=== PATIENT | female | born 1970 | race Hispanic/Latino ===

== ENCOUNTER 2016-08-03 00:38 | Emergency (ER) | payer OTHER, MEDICARE ==
[~2016-08-03 00:38] MED LIST: ABILIFY 10 MG10 MG PO; ABILIFY 2MG2 MG PO; ABILIFY 5MG5 MG PO; ALBUTEROL 3 ML3 ML INH; ALBUTEROL0.09 MG/A1 INH; ALBUTEROL0.09 MG/A2; ALBUTEROL2.5 MG/3 M INH/SOL; APTIOM PO; APTIOM400 MG PO; ARIPIPRAZOLE2 MG PO; ATENOLOL25 MG PO; ATIVAN0.5 MG PO; ATIVAN1 M1 PO; ATIVAN1 MG PO; AUGMENTIN 875 M1 TAB PO; BACTRIM DS 8001 TAB PO; BENTYL20 MG PO; CIPRO 500MG (E500 MG PO; CLOTRIMAZOLE-BE15 GM TOP; DIASTAT ACUDIAL20 MG PR; DIASTAT ACUDIAL20 MG RC; DIAZEPAM5 M1 PO; DILAUDID2 M1 PO; ENDOCET 325 MG-1 TA1 PO; ESCITALOPRAM OX10 MG PO; FLOMAX(MONOGRA0.4 MG PO; HYDROMORPHONE HC2 M1; HYDROXYZINE HCL25 M2 PO; HYDROXYZINE HCL25 MG PO; HYDROXYZINE HYD25 M1 PO; IBU800 MG PO; IBUPROFEN600 M1 PO; IBUPROFEN600 MG PO; IBUPROFEN800 MG PO; IMODIUM2 MG PO; LAMICTAL 100MG100 MG PO; LAMICTAL200 MG PO; LAMOTRIGINE100 MG PO; LAMOTRIGINE200 MG PO; LORAZEPAM1 MG PO; MEDROL DOSEPAK1 PAC PO; MIRALAX17 GM PO; MOBIC15 M1 PO; MOBIC7.5 MG PO; MONTELUKAST SOD10 MG; MOTRIN 600 MG600 MG PO; MULTI-DAY VITA1 EACH PO; NITROFURANTOIN100 M4 PO; NORCO 325 MG-51 TAB PO; ONFI10 M1 PO; PEPCID20 M1 PO; PERCOCET 325 MG1 TA2 PO; PERCOCET 5-3251 EACH PO; PREDNISONE10 MG PO; PROAIR HFA0.09 MG/Ac INH; SERTRALINE HYD100 MG PO; SINGULAIR10 MG PO; SPIRIVA 18 MCG18 MCG INH; SYMBICORT 160/41 PUF INH; SYMBICORT 16010.2 GM INH; SYMBICORT1 AER INH; TAMSULOSIN HYD0.4 MG PO; TESSALON PERLE100 MG PO; TOPAMAX100 MG PO; TOPAMAX25 MG PO; TOPAMAX50 MG PO; TOPIRAMATE25 MG PO; TORADOL10 MG PO; TRAZODONE HCL100 M1 PO; TRAZODONE100 MG PO; TYLENOL WITH C1 EACH PO; VIMPAT150 M1 PO; VITAMIN D50000 I1 PO; VOLTAREN50 MG PO; ZOFRAN 4 MG TABL4 MG PO; ZOFRAN ODT4 M1 SL; ZOFRAN ODT4 MG PO; ZOFRAN4 M1 PO; ZOFRAN4 M1 SL; ZOFRAN4 M2 PO; ZOLOFT100 MG PO; [UNRECOGNIZED DRUG - OTHER] PO
--- NOTE | 2016-08-03 01:29 | ED AMS/SEIZURE/WEAK/DIZZY ---
History of Present Illness General Chief Complaint: Seizure Stated Complaint: BIBA SEIZURES Source: family, old records, EMS Exam Limitations: unable to give history, POSTICTAL Vital Signs & Intake/Output Vital Signs & Intake/Output Vital Signs Date Time Temp Pulse Resp B/P Pulse O2 O2 Flow FiO2 Ox Delivery Rate 08/03 0329 63 18 143/75 97 08/03 0055 96 Room Air 08/03 0040 98.3 78 18 158/80 97 Room Air Allergies Coded Allergies: carbamazepine (UNKNOWN 02/11/16) divalproex sodium (From Depakote) (PT DOESN'T REMEMBER 02/11/16) levetiracetam (From Keppra) (RASH 02/11/16) phenobarbital (UNKNOWN 02/11/16) phenytoin (RASH 02/11/16) oxcarbazepine (From Trileptal) (Severe, SPOTS ON LUNGS 02/11/16) rufinamide (Mild, "DIDN'T WORK" 02/11/16) Uncoded Allergies: benzel (suicidal thoughts 01/24/16) Reconcile Medications Albuterol Sulfate (Albuterol Sulfate Hfa) 0.09 MG/Actuation KATHERYN 2 PUFF INH PRN SHORTNESS OF BREATH (Reported) 90 MCG PER PUFF Albuterol Sulfate 2.5 MG/3 ML VIAL.NEB 1 Vial INH/JAKY Q6H PRN COPD (Reported) Atenolol 25 MG TAB 1 TAB PO DAILY HEART (Reported) Budesonide/Formoterol Fumara (Symbicort 160-4.5 Mcg Inhaler) 160 MCG/4.5 MCG PUF 2 PUF INH BID BREATHING PROBLEMS (Reported) Clobazam (ONFI) 10 MG TABLET 1 TAB PO DAILY SEIZURES (Reported) Clotrimazole/Betamethasone Dip (Clotrimazole-Betamethasone Crm) 15 GM CREAM..G. 1 SMITA TOP BID PSORIASIS (Reported) apply to affected area(s) Diazepam 5 MG TABLET 1 TAB PO DAILY SEIZURES (Reported) Escitalopram Oxalate 10 MG TABLET 1 TAB PO DAILY DEPRESSION (Reported) Famotidine (Pepcid) 20 MG TABLET 1 TAB PO BID gastritis Hydroxyzine HCl 25 MG TABLET 1 TAB PO TID PRN ITCHING (Reported) Ibuprofen 800 MG TAB 1 TAB PO TID PRN PAIN Lacosamide (Vimpat) 150 MG TABLET 1 TAB PO DAILY SEIZURES (Reported) Lamotrigine (Lamictal) 200 MG TAB 4 TAB PO QAM SEIZURES (Reported) Meloxicam (Mobic) 15 MG TABLET 1 TAB PO DAILY PAIN Ondansetron (Zofran Odt) 4 MG TAB.RAPDIS 1 ODT SL TID PRN nausea TRAZODONE HCL (Trazodone HCl) 100 MG TAB 2 TAB PO QPM SLEEP (Reported) Tylenol With Codeine (Tylenol With Codeine #3 Tablet) 1 EACH TABLET 1 TAB PO Q4-6 PRN PRN PAIN Triage Note: TRIAGE: BIBA FROM HOME FAMILY REPORTED TO EMS 2-3 SEIZURES EACH LASTING APPROX 15 SECONDS OCCURED WITHIN 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 PATIENT HX SEIZURES, REPORTS TAKES VALIUM DAILY AND DID NOT TAKE TODAY. PATIENT ARRIVES LETHARGIC, SPEAKING ONLY FEW WORDS. NO SEIZURE ACTIVITY NOTED. PATIENT REPORTS "FEELS LIKE I'M GOING TO HAVE ANOTHER ONE." PATIENT PLACED ON DAIRY INSPECTOR, SEIZURE PADS AND SEIZURE/FAL PRECAUTIONS REMAIN IN PLACE. Triage Nurses Notes Reviewed? yes HPI: Patient presents for evaluation after having 2 grand mal seizures tonight. Patient has a known history of seizures with multiple antiseizure medication allergies and adverse reactions. She recently had an increase in her dose of ONFI. She is currently being treated for an ear infection. Since he increased dose of her antiseizure medication she has felt "a little spacey". She has been compliant with her medications. Her last seizure was August 04 while on vacation. She typically gets one to 2 seizures per week. Past History Travel History Traveled to [place] past 21 day No Medical History Any Pertinent Medical History? 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 FATHER ( of AIDS.). child (seizure disorder). Relation not specified for: No pertinent family history Hx Contributory? No Review of Systems Review of Systems Constitutional: Reports: see HPI. Neurological/Psychological: Reports: no symptoms, tonic-clonic seizures. Comments Patient is unable to provide review of systems. Physical Exam Physical Exam General Appearance: SEE BELOW Comments: Gen.: Well-nourished, well-developed, no acute respiratory distress. Distant gaze, not meaningfully communicative Head: Normocephalic, atraumatic. Eyes: Normal inspection bilaterally, PERRLA Ears: Normal inspection bilaterally Nose: Normal inspection Throat/mouth : Moist mucosa Neck: Supple, full range of motion, no goiter Heart: Regular rate and rhythm, no murmurs rubs or gallops Lungs: Clear to auscultation bilaterally with normal air entry Chest: Nontender Back: Normal range of motion Abdomen: Soft, nontender, nondistended, normal bowel sounds Extremities: Normal range of motion grossly, equal radial pulses, no cyanosis clubbing or edema, normal deep tendon reflexes, no tremors Neurologic: Cranial nerves grossly intact, speech is clear Skin: warm and dry Psychiatric: Calm, cooperative, no apparent delusions or hallucinations Core Measures ACS in differential dx? No CVA/TIA Diagnosis: No Severe Sepsis Present: No Septic Shock Present: No Progress Differential Diagnosis: seizure disorder Plan of Care: Continue current medications, follow up with neurologist Initial ED EKG: none Comments: Pt has hx of frequent seizures. multiple ED evaluations. At this point there seems to be no reason to repeat yet another workup here in the emergency department. Other than the seizures is been no changes in the patient's overall history aside from her treatment for an ear infection. They agree that an emergency department workup is not necessary at this time. 08/03/2016 4:40:29 AM patient appears comfortable after medications and has had no further seizure activity here in the emergency department. I feel she is stable for discharge. Departure Departure Disposition: HOME OR SELF CARE Condition: Stable Clinical Impression Primary Impression: Breakthrough seizure Referrals: ACOSTA HERNDON (PCP/Family) Additional Instructions: Continue your current medications. Follow-up with your neurologist this week. Notify your primary care doctor of this emergency department visit and treatment plan. Return if any concerns or sudden worsening. Thank you for choosing the [facility] Emergency Department for your care. It was a pleasure to serve you today. Ross Mccracken M.D. [facility] Departure Forms: Customer Survey General Discharge Information
[2016-08-03 04:50] VITALS: BP 116/56
== END 2016-08-03 05:27 ==
LOC: ERH 00:38
DX: R56.9 Unspecified convulsions (principal)
CPT/HCPCS: 96374; 96375; J0131

== ENCOUNTER 2016-08-17 08:33 | Emergency (ER) | payer OTHER, MEDICARE ==
[~2016-08-17] VITALS: Ht 167.6 cm; Wt 83.9 kg
--- NOTE | 2016-08-17 08:49 | ED AMS/SEIZURE/WEAK/DIZZY ---
History of Present Illness General Chief Complaint: General Adult Stated Complaint: ? ON COMING SEIZURE ACTIVITY Source: patient, family, old records Exam Limitations: clinical condition Vital Signs & Intake/Output Vital Signs & Intake/Output Vital Signs Date Time Temp Pulse Resp B/P Pulse O2 O2 Flow FiO2 Ox Delivery Rate 08/17 0841 97.2 59 18 161/81 94 Room Air Allergies Coded Allergies: carbamazepine (UNKNOWN 02/11/16) divalproex sodium (From Depakote) (PT DOESN'T REMEMBER 02/11/16) levetiracetam (From Keppra) (RASH 02/11/16) phenobarbital (UNKNOWN 02/11/16) phenytoin (RASH 02/11/16) oxcarbazepine (From Trileptal) (Severe, SPOTS ON LUNGS 02/11/16) rufinamide (Mild, "DIDN'T WORK" 02/11/16) Uncoded Allergies: benzel (suicidal thoughts 01/24/16) Reconcile Medications Albuterol Sulfate (Albuterol Sulfate Hfa) 0.09 MG/Actuation KATHERYN 2 PUFF INH PRN SHORTNESS OF BREATH (Reported) 90 MCG PER PUFF Albuterol Sulfate 2.5 MG/3 ML VIAL.NEB 1 Vial INH/JAKY Q6H PRN COPD (Reported) Atenolol 25 MG TAB 1 TAB PO DAILY HEART (Reported) Budesonide/Formoterol Fumara (Symbicort 160-4.5 Mcg Inhaler) 160 MCG/4.5 MCG PUF 2 PUF INH BID BREATHING PROBLEMS (Reported) Clobazam (ONFI) 10 MG TABLET 1 TAB PO DAILY SEIZURES (Reported) Clotrimazole/Betamethasone Dip (Clotrimazole-Betamethasone Crm) 15 GM CREAM..G. 1 SMITA TOP BID PSORIASIS (Reported) apply to affected area(s) Diazepam 5 MG TABLET 1 TAB PO DAILY SEIZURES (Reported) Escitalopram Oxalate 10 MG TABLET 1 TAB PO DAILY DEPRESSION (Reported) Famotidine (Pepcid) 20 MG TABLET 1 TAB PO BID gastritis Hydroxyzine HCl 25 MG TABLET 1 TAB PO TID PRN ITCHING (Reported) Ibuprofen 800 MG TAB 1 TAB PO TID PRN PAIN Lacosamide (Vimpat) 150 MG TABLET 1 TAB PO DAILY SEIZURES (Reported) Lamotrigine (Lamictal) 200 MG TAB 4 TAB PO QAM SEIZURES (Reported) Meloxicam (Mobic) 15 MG TABLET 1 TAB PO DAILY PAIN Ondansetron (Zofran Odt) 4 MG TAB.RAPDIS 1 ODT SL TID PRN nausea TRAZODONE HCL (Trazodone HCl) 100 MG TAB 2 TAB PO QPM SLEEP (Reported) Tylenol With Codeine (Tylenol With Codeine #3 Tablet) 1 EACH TABLET 1 TAB PO Q4-6 PRN PRN PAIN Triage Nurses Notes Reviewed? yes Onset: Abrupt Duration: minute(s): (FEW) Timing: single episode today Injury Environment: IN THE HOSPITAL Severity: moderate No Modifying Factors: none Associated Symptoms: EXHAUSTION HPI: This is a 46-year-old female with history of both epileptic and nonepileptic seizures who presents to the ER while waiting for her son for chief complaint of seizure 1. She initially felt like she was having a seizure and then had a witnessed seizure per the . They were in and out of the ER all night waiting for her son to a food bolus disimpaction. Secondary to that she did not get much sleep which may have precipitated this disorder. This morning the state that she took her regular medications Lamictal and Vimpat. Last seizure was minor about 5 days ago. Past History Travel History Traveled to [place] past 21 day No Medical History Any Pertinent Medical History? 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 FATHER ( of AIDS.). child (seizure disorder). Relation not specified for: No pertinent family history Hx Contributory? No Review of Systems Review of Systems Constitutional: Reports: weakness. Denies: chills, fever. EENTM: Reports: no symptoms. Respiratory: Denies: cough, short of breath. Cardiovascular: Denies: chest pain. GI: Denies: abdominal pain. Genitourinary: Reports: no symptoms. Musculoskeletal: Reports: no symptoms. Skin: Reports: no symptoms. Neurological/Psychological: Reports: anxiety, headache. Hematologic/Endocrine: Denies: bruising, bleeding, polyuria, polydipsia. Immunologic/Allergic: Denies: splenectomy. All Other Systems: Reviewed and Negative Physical Exam Physical Exam General Appearance: well developed/nourished, alert, awake, anxious, moderate distress Head: atraumatic Eyes: Bilateral: PERRL, EOMI. Ears, Nose, Throat: hearing grossly normal Neck: normal inspection, supple, full range of motion Respiratory: normal breath sounds, chest non-tender, no respiratory distress Cardiovascular: regular rate/rhythm Peripheral Pulses: 2+ radial (R), 2+ radial (L) Gastrointestinal: normal bowel sounds, soft, non-tender Back: normal inspection, normal range of motion Extremities: normal range of motion Neurologic/Psych: awake, alert, tearful, neuro grossly intact Skin: intact, normal color, warm/dry Core Measures ACS in differential dx? No CVA/TIA Diagnosis: No Severe Sepsis Present: No Septic Shock Present: No Progress Differential Diagnosis: SEIZURE, PSEUDOSEIZURE, EXHAUSTION Plan of Care: Orders Procedure Date/time Status Telemetry/Tug Boat Captain 08/17 848 Active COMPREHENSIVE METABOLIC PANEL 08/17 848 Complete CBC WITHOUT DIFFERENTIAL 08/17 848 Complete Laboratory Tests 08/17/16 0845: Anion Gap 10, Estimated GFR > 60, BUN/Creatinine Ratio 18.6, Glucose 123 H, Calcium 9.4, Total Bilirubin 0.6, AST 23, ALT 22, Alkaline Phosphatase 120, Total Protein 7.3, Albumin 4.2, Globulin 3.1, Albumin/Globulin Ratio 1.4, CBC w Diff NO MAN DIFF REQ, RBC 5.03, MCV 81.9, MCH 26.9 L, RDW 14.4, MPV 8.4, Gran % 68.5, Lymphocytes % 22.0, Monocytes % 5.7, Eosinophils % 3.4, Basophils % 0.4, Absolute Granulocytes 7.7 H, Absolute Lymphocytes 2.5, Absolute Monocytes 0.6, Absolute Eosinophils 0.4, Absolute Basophils 0, PUBS MCHC 32.8 L Initial ED EKG: none Rhythm Strip: normal sinus rhythm Departure Departure Time of Disposition: 943 Disposition: HOME OR SELF CARE Condition: Stable Clinical Impression Primary Impression: Seizure disorder Referrals: ACOSTA HERNDON (PCP/Family) Additional Instructions: Continue your regular seizure medications. Make sure you get plenty of sleep today. Follow-up with her doctor in the office. Departure Forms: Customer Survey General Discharge Information
[2016-08-17 09:08] LABS: ABSOLUTE BASOPHIL COUNT 0 /CUMM (0.0-0.2); ABSOLUTE EOSINOPHIL COUNT 0.4 /CUMM (0.0-0.7); ABSOLUTE GRANULOCYTE CT 7.7 /CUMM (1.4-6.5); ABSOLUTE LYMPH COUNT 2.5 /CUMM (1.2-3.4); ABSOLUTE MONOCYTE COUNT 0.6 /CUMM (0.10-0.60); BASOPHIL % 0.4 % (0.0-2.0); EOSINOPHIL % 3.4 % (0-5); GRANULOCYTE % 68.5 % (42.2-75.2); HEMATOCRIT 41.2 % (37-47); MEAN CORPUSCULAR HGB 26.9 PG (27.0-31.0); MEAN CORPUSCULAR HGB CONC 32.8 G/DL (33.0-37.0); MEAN CORPUSCULAR VOLUME 81.9 FL (81.0-99.0); MEAN PLATELET VOLUME 8.4 FL (7.4-10.4); PLATELET COUNT 338 /CUMM (130-400); RBC DISTRIBUTION WIDTH 14.4 % (11.5-14.5); RED BLOOD CELL CT 5.03 /CUMM (4.20-5.40); WHITE BLOOD CELL COUNT 11.2 /CUMM (4.8-10.8)
[2016-08-17 09:57] VITALS: BP 142/78
== END 2016-08-17 09:57 ==
LOC: ERH 08:33
PROVIDERS: Emergency Medicine
DX: G40.909 Epilepsy, unspecified, not intractable, without status epilepticus (principal); E11.9 Type 2 diabetes mellitus without complications
CPT/HCPCS: 96374

== ENCOUNTER 2016-09-04 23:09 | Emergency (ER) | payer OTHER, MEDICARE ==
--- NOTE | 2016-09-04 23:20 | ED GENERAL ADULT ---
History of Present Illness General Chief Complaint: Seizure Stated Complaint: ?SEIZURE Source: patient Exam Limitations: no limitations Vital Signs & Intake/Output Vital Signs & Intake/Output Vital Signs Date Time Temp Pulse Resp B/P Pulse O2 O2 Flow FiO2 Ox Delivery Rate 09/05 0152 97.0 63 18 148/78 96 Room Air 09/04 2318 99.0 65 18 138/80 96 Room Air ED Intake and Output 09/05 0000 09/04 1200 Intake Total Output Total Balance Patient 230 lb Weight Allergies Coded Allergies: carbamazepine (UNKNOWN 02/11/16) divalproex sodium (From Depakote) (PT DOESN'T REMEMBER 02/11/16) levetiracetam (From Keppra) (RASH 02/11/16) phenobarbital (UNKNOWN 02/11/16) phenytoin (RASH 02/11/16) oxcarbazepine (From Trileptal) (Severe, SPOTS ON LUNGS 02/11/16) rufinamide (Mild, "DIDN'T WORK" 02/11/16) Uncoded Allergies: benzel (suicidal thoughts 01/24/16) Reconcile Medications Albuterol Sulfate (Albuterol Sulfate Hfa) 0.09 MG/Actuation KATHERYN 2 PUFF INH PRN SHORTNESS OF BREATH (Reported) 90 MCG PER PUFF Albuterol Sulfate 2.5 MG/3 ML VIAL.NEB 1 Vial INH/JAKY Q6H PRN COPD (Reported) Atenolol 25 MG TAB 1 TAB PO DAILY HEART (Reported) Budesonide/Formoterol Fumara (Symbicort 160-4.5 Mcg Inhaler) 160 MCG/4.5 MCG PUF 2 PUF INH BID BREATHING PROBLEMS (Reported) Clobazam (ONFI) 10 MG TABLET 1 TAB PO DAILY SEIZURES (Reported) Clotrimazole/Betamethasone Dip (Clotrimazole-Betamethasone Crm) 15 GM CREAM..G. 1 SMITA TOP BID PSORIASIS (Reported) apply to affected area(s) Diazepam 5 MG TABLET 1 TAB PO DAILY SEIZURES (Reported) Escitalopram Oxalate 10 MG TABLET 1 TAB PO DAILY DEPRESSION (Reported) Famotidine (Pepcid) 20 MG TABLET 1 TAB PO BID gastritis Hydroxyzine HCl 25 MG TABLET 1 TAB PO TID PRN ITCHING (Reported) Ibuprofen 800 MG TAB 1 TAB PO TID PRN PAIN Lacosamide (Vimpat) 150 MG TABLET 1 TAB PO DAILY SEIZURES (Reported) Lamotrigine (Lamictal) 200 MG TAB 4 TAB PO QAM SEIZURES (Reported) Meloxicam (Mobic) 15 MG TABLET 1 TAB PO DAILY PAIN Ondansetron (Zofran Odt) 4 MG TAB.RAPDIS 1 ODT SL TID PRN nausea TRAZODONE HCL (Trazodone HCl) 100 MG TAB 2 TAB PO QPM SLEEP (Reported) Tylenol With Codeine (Tylenol With Codeine #3 Tablet) 1 EACH TABLET 1 TAB PO Q4-6 PRN PRN PAIN Triage Note: PT BIBA S/P SEZIURE. PER EMS PT HAD ONE UNWITNESSED SEIZURE, THEN A WITNESSED "CONVULSION EPISODE". PT WAS POST ICTHAL UPON EMS ARRIVAL. PT HAD INCONTINENT EPISODE. UPON ARRIVAL PT IS AAOX4 Triage Nurses Notes Reviewed? yes Onset: Just prior to arrival Duration: waxing and waning Timing: recent history Injury Environment: home Severity: moderate Severity Numbers: 6 No Modifying Factors: none HPI: Patient is a 46 female with history of seizures presenting to the emergency department with chief complaint of 2 episodes of seizures prior to arrival. Patient reports that she was at home, felt lightheaded and dizzy and was lowered to the ground. She then started to seize. The first seizure lasted about a minute and the second seizure lasted about a minute as well. EMS arrived. They reported that she was postictal. She was not given any medications. Positive urinary incontinence. No head injury. No neck pain. She reports that she feels foggy. Denies any back pain or neck pain. She was that she had upper respiratory symptoms the other day but that improved. Denies any recent changing in dosing of medication. (RAFFI ELIZALDE) Past History Medical History Any Pertinent Medical History? 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 FATHER ( of AIDS.). child (seizure disorder). Relation not specified for: No pertinent family history Hx Contributory? No (RAFFI ELIZALDE) Review of Systems Review of Systems Constitutional: Reports: no symptoms. Comments Review of systems: See HPI, All other systems negative. Constitutional, no chills fever or weight loss HEENT: No visual changes no sore throat no congestion Cardiovascular: No chest pain ,palpitation Skin, no jaundice no rashes Respiratory: No dyspnea cough sputum or hemoptysis GI: No nausea no vomiting : No dysuria No hematuria Muscle skeletal: no back pain, no neck pain, Neurologic: No numbness Psych: No increased stress anxiety Immunology: No splenectomy or history of AIDS (RAFFI ELIZALDE) Physical Exam Physical Exam General Appearance: well developed/nourished, no apparent distress, alert, awake , comfortable Comments: Well-developed well-nourished person in no acute distress HEENT: extraocular motion intact, no nystagmus. Pupils equally round and reactive to light and accommodation. Nose is atraumatic. External auditory canal and Tympanic membranes clear. Pharynx normal. No swelling or edema. Dry oral mucosa. Neck: Supple, no lymphadenopathy, normal range of motion without pain or tenderness Back: Nontender, no CVA tenderness. Full range of motion Cardiovascular: Regular rate and rhythms no murmurs rubs or gallops, normal JVP Respiratory: Chest nontender. No respiratory distress.breath sounds clear to auscultation bilaterally Extremity: No edema, no calf tenderness to palpation, normal and equal pulses. Right knee is in a knee immobilizer secondary to recent knee replacement. Neuro: Alert oriented x3, motor sensory normal, cranial nerves II through XII grossly intact. Cerebellar testing is unremarkable. Skin: No appreciable rash on exposed skin, skin is warm and dry. Psych: Mood and affect is normal, memory and judgment is normal. Core Measures ACS in differential dx? No CVA/TIA Diagnosis: No Severe Sepsis Present: No Septic Shock Present: No (RAFFI ELIZALDE) Progress Differential Diagnoses I considered the following diagnoses in my evaluation of the patient: Medication noncompliance, seizure disorder, dehydration, less likely abnormality , febrile seizure, viral syndrome Plan of Care: Orders Procedure Date/time Status PROLACTIN 09/04 2313 Active COMPREHENSIVE METABOLIC PANEL 09/04 2313 Active CBC WITHOUT DIFFERENTIAL 09/04 2313 Complete EKG 09/04 2313 Active Laboratory Tests 09/05/16 0024: Anion Gap 9, Estimated GFR > 60, BUN/Creatinine Ratio 12.2, Glucose 104 H, Calcium 8.7, Total Bilirubin 0.3, AST 19, ALT 22, Alkaline Phosphatase 136 H, Total Protein 6.6, Albumin 3.4 L, Globulin 3.2, Albumin/Globulin Ratio 1.1, Prolactin Pending, CBC w Diff NO MAN DIFF REQ, RBC 4.53, MCV 82.6, MCH 27.0, RDW 13.9, MPV 7.7, Gran % 71.9, Lymphocytes % 19.2 L, Monocytes % 1.3 L, Eosinophils % 7.2 H, Basophils % 0.4, Absolute Granulocytes 8.4 H, Absolute Lymphocytes 2.2, Absolute Monocytes 0.1 L, Absolute Eosinophils 0.8, Absolute Basophils 0, PUBS MCHC 32.7 L Initial ED EKG: sinus rhythm at 62 bpm Prior EKG: unchanged Hand-Off Endorsed To: BERTRAM RIVERS MD Endorsed Time: 99 Pending: labs Comments: 09/05/2016 12:16:13 AM arrival patient is alert and oriented no focal deficits. She does report at this time that she feels like she is going to have a seizure. 2 mg IM Ativan ordered. 09/05/2016 12:53:37 AM patient will be signed out to Dr. Rivers pending labs. Patient resting comfortably. (RAFFI ELIZALDE) Departure Departure Disposition: HOME OR SELF CARE Condition: Stable Clinical Impression Primary Impression: Seizure Referrals: ACOSTA HERNDON (PCP/Family) Additional Instructions: Follow-up with your primary care physician call to make an appointment. Continue taking daily medications as previously prescribed. Return for worsening symptoms or concerns. Departure Forms: Customer Survey General Discharge Information (RAFFI ELIZALDE) Departure Time of Disposition: 310 PA/STOCK PREPARATION SUPERVISOR Co-Sign Statement Statement: ED Attending supervision documentation- x I saw and evaluated the patient. I have also reviewed all the pertinent lab results and diagnostic results. I agree with the findings and the plan of care as documented in the PA's/STOCK PREPARATION SUPERVISOR's documentation. [] I have reviewed the ED Record and agree with the PA's/STOCK PREPARATION SUPERVISOR's documentation. [] Additions or exceptions (if any) to the PAs/STOCK PREPARATION SUPERVISOR's note and plan are summarized below: [] (TITA MCCOY,BERTRAM) Critical Care Note Critical Care Note Critical Care Time: non-applicable (GUILLAUME HOLDEN,RAFFI)
[2016-09-05 00:32] LABS: ABSOLUTE BASOPHIL COUNT 0 /CUMM (0.0-0.2); ABSOLUTE EOSINOPHIL COUNT 0.8 /CUMM (0.0-0.7); ABSOLUTE GRANULOCYTE CT 8.4 /CUMM (1.4-6.5); ABSOLUTE LYMPH COUNT 2.2 /CUMM (1.2-3.4); ABSOLUTE MONOCYTE COUNT 0.1 /CUMM (0.10-0.60); BASOPHIL % 0.4 % (0.0-2.0); EOSINOPHIL % 7.2 % (0-5); GRANULOCYTE % 71.9 % (42.2-75.2); HEMATOCRIT 37.3 % (37-47); MEAN CORPUSCULAR HGB CONC 32.7 G/DL (33.0-37.0); MEAN CORPUSCULAR VOLUME 82.6 FL (81.0-99.0); MEAN PLATELET VOLUME 7.7 FL (7.4-10.4); PLATELET COUNT 463 /CUMM (130-400); RBC DISTRIBUTION WIDTH 13.9 % (11.5-14.5); RED BLOOD CELL CT 4.53 /CUMM (4.20-5.40); WHITE BLOOD CELL COUNT 11.7 /CUMM (4.8-10.8)
[2016-09-05 03:30] VITALS: BP 142/74
== END 2016-09-05 03:31 ==
LOC: ERH 23:09
PROVIDERS: Physician Assistant
DX: R56.9 Unspecified convulsions (principal)
CPT/HCPCS: 93005; 93010; 96372

== ENCOUNTER 2016-10-05 12:37 | Emergency (ER) | payer OTHER, MEDICARE ==
[~2016-10-05] VITALS: Ht 165.1 cm; Wt 98.9 kg
--- NOTE | 2016-10-05 13:15 | ED AMS/SEIZURE/WEAK/DIZZY ---
History of Present Illness General Chief Complaint: Seizure Stated Complaint: SEIZURES X2 DAYS Source: patient, family, old records Exam Limitations: no limitations Vital Signs & Intake/Output Vital Signs & Intake/Output Vital Signs Date Time Temp Pulse Resp B/P Pulse O2 O2 Flow FiO2 Ox Delivery Rate 10/05 1420 97.4 60 16 139/64 95 Room Air 10/05 1253 Room Air 10/05 1240 97.3 69 16 157/77 96 Room Air Allergies Coded Allergies: carbamazepine (UNKNOWN 02/11/16) divalproex sodium (From Depakote) (PT DOESN'T REMEMBER 02/11/16) levetiracetam (From Keppra) (RASH 02/11/16) phenobarbital (UNKNOWN 02/11/16) phenytoin (RASH 02/11/16) oxcarbazepine (From Trileptal) (Severe, SPOTS ON LUNGS 02/11/16) rufinamide (Mild, "DIDN'T WORK" 02/11/16) Uncoded Allergies: benzel (suicidal thoughts 01/24/16) Reconcile Medications Albuterol Sulfate (Albuterol Sulfate Hfa) 0.09 MG/Actuation KATHERYN 2 PUFF INH PRN SHORTNESS OF BREATH (Reported) 90 MCG PER PUFF Albuterol Sulfate 2.5 MG/3 ML VIAL.NEB 1 Vial INH/JAKY Q6H PRN COPD (Reported) Atenolol 25 MG TAB 1 TAB PO DAILY HEART (Reported) Budesonide/Formoterol Fumara (Symbicort 160-4.5 Mcg Inhaler) 160 MCG/4.5 MCG PUF 2 PUF INH BID BREATHING PROBLEMS (Reported) Clobazam (ONFI) 10 MG TABLET 1 TAB PO DAILY SEIZURES (Reported) Clotrimazole/Betamethasone Dip (Clotrimazole-Betamethasone Crm) 15 GM CREAM..G. 1 SMITA TOP BID PSORIASIS (Reported) apply to affected area(s) Diazepam 5 MG TABLET 1 TAB PO DAILY SEIZURES (Reported) Escitalopram Oxalate (Lexapro) 10 MG TABLET 1 TAB PO DAILY UNK (Reported) Famotidine (Pepcid) 20 MG TABLET 1 TAB PO BID gastritis Hydroxyzine HCl 25 MG TABLET 1 TAB PO TID PRN ITCHING (Reported) Ibuprofen 800 MG TAB 1 TAB PO TID PRN PAIN Lacosamide (Vimpat) 150 MG TABLET 1 TAB PO DAILY SEIZURES (Reported) Lamotrigine 200 MG TABLET 1 TAB PO BID SEIZURES (Reported) Meloxicam (Mobic) 15 MG TABLET 1 TAB PO DAILY PAIN Ondansetron (Zofran Odt) 4 MG TAB.RAPDIS 1 ODT SL TID PRN nausea TRAZODONE HCL (Trazodone HCl) 100 MG TAB 2 TAB PO QPM SLEEP (Reported) Tylenol With Codeine (Tylenol With Codeine #3 Tablet) 1 EACH TABLET 1 TAB PO Q4-6 PRN PRN PAIN Triage Note: PT BIBA FOR SEIZURES X2 DAYS. PT STATES SHE TOOK DOUBLE DOSE OF LAMICTAL TO HELP STOP THE SEIZURES WITH NO RELIEF. PT STATES HER LAST SEIZURE WAS LAST NIGHT. PT REPORTS DOUBLE VISION SINCE THIS MORNING Triage Nurses Notes Reviewed? yes HPI: Patient presents to the emergency room concerned that she's been having a seizure for 2 days. Thinks that she's had an absence seizure that's been constant for 2 days. Patient states that she just feels out of it and fatigued. Patient states that occasionally she gets double vision. There is no nausea or vomiting. Patient took an extra Lamictal but that has not helped. Patient also took Valium which also did not help. 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 Patient also states that she has a wet sounding but nonproductive cough. There is no chest pain. There are no fevers or chills. There is no nausea or vomiting. Past History Travel History Traveled to [place] past 21 day No Medical History Any Pertinent Medical History? 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 FATHER ( of AIDS.). child (seizure disorder). Relation not specified for: No pertinent family history Hx Contributory? No Review of Systems Review of Systems Constitutional: Reports: no symptoms. EENTM: Reports: no symptoms. Respiratory: Reports: see HPI, cough. Cardiovascular: Reports: no symptoms. GI: Reports: no symptoms. Genitourinary: Reports: no symptoms. Musculoskeletal: Reports: no symptoms. Skin: Reports: no symptoms. Neurological/Psychological: Reports: see HPI. Hematologic/Endocrine: Reports: no symptoms. Immunologic/Allergic: Reports: no symptoms. All Other Systems: Reviewed and Negative Physical Exam Physical Exam General Appearance: well developed/nourished, alert, awake, mild distress Head: atraumatic, normal appearance Eyes: Bilateral: PERRL, EOMI. Ears, Nose, Throat: normal pharynx, normal ENT inspection, hearing grossly normal Neck: normal inspection, supple, full range of motion Respiratory: normal breath sounds, chest non-tender, no respiratory distress, lungs clear Cardiovascular: regular rate/rhythm, normal peripheral pulses Gastrointestinal: normal bowel sounds, soft, non-tender, no organomegaly Back: normal inspection, normal range of motion Extremities: normal range of motion, evidence of injury Neurologic/Psych: no motor/sensory deficits, awake, alert, oriented x 3, normal gait Skin: intact, normal color, warm/dry Lymphatic: no anterior cervical fabian Core Measures ACS in differential dx? No CVA/TIA Diagnosis: No Severe Sepsis Present: No Septic Shock Present: No Progress Differential Diagnosis: arrythmia, drug intoxication, electrolyte imbalance, seizure disorder Plan of Care: Orders Procedure Date/time Status TROPONIN LEVEL 10/05 1315 Complete HUMAN BETA HCG SCREEN 10/05 1315 Complete COMPREHENSIVE METABOLIC PANEL 10/05 1315 Complete CBC WITHOUT DIFFERENTIAL 10/05 1314 Complete EKG 10/05 1252 Active Laboratory Tests 10/05/16 1319: Anion Gap 8, Estimated GFR > 60, BUN/Creatinine Ratio 13.3, Glucose 99, Calcium 9.4, Total Bilirubin 0.2, AST 20, ALT 27, Alkaline Phosphatase 126, Troponin I < 0.01, Total Protein 6.9, Albumin 3.8, Globulin 3.1, Albumin/Globulin Ratio 1.2, Total Beta HCG NEGATIVE, CBC w Diff NO MAN DIFF REQ, RBC 4.73, MCV 81.8, MCH 26.2 L, RDW 14.2, MPV 8.9, Gran % 62.2, Lymphocytes % 23.5, Monocytes % 10.2 H , Eosinophils % 2.7, Basophils % 1.4, Absolute Granulocytes 4.5, Absolute Lymphocytes 1.7, Absolute Monocytes 0.7 H, Absolute Eosinophils 0.2, Absolute Basophils 0.1, PUBS MCHC 32.1 L Diagnostic Imaging: Viewed by Me: Radiology Read. Discussed w/RAD: Radiology Read. CXR Impression: PATIENT: BEAU BOONE PRESENT AGE: 46 PATIENT ACCOUNT NO: [id number] : 70 LOCATION: [facility] ORDERING PHYSICIAN: MADISON PURDY MD SERVICE DATE: 10/05/16 EXAM TYPE: RAD - XRY-CHEST XRAY, PA AND LATERAL EXAMINATION: XR CHEST CLINICAL INFORMATION: Productive cough. Evaluate for pneumonia. COMPARISON: Multiple priors, most recent chest radiograph dated 02/26/2016. TECHNIQUE: AP and lateral views of the chest were obtained. FINDINGS: No focal airspace consolidation. No pleural effusion or pneumothorax. No cardiomediastinal silhouette enlargement. The visualized osseous structures are unremarkable. IMPRESSION: No airspace consolidation. No significant interval change since the prior examination. DICTATED BY: ANNA QUEVEDO MD DATE/TIME DICTATED:10/05/161514 PSS DELIVERY PROFESSIONAL:ANTONIO DATE/TIME TRANSCRIBED:10/05/161514 CONFIDENTIAL, DO NOT COPY WITHOUT APPROPRIATE AUTHORIZATION. <Electronically signed in Other Vendor System> SIGNED BY: ANNA QUEVEDO MD 10/05/16 1531 Initial ED EKG: NSR, nonspecific ST T wave chg Prior EKG: unchanged Departure Departure Disposition: HOME OR SELF CARE Condition: Stable Clinical Impression Primary Impression: Seizure Referrals: [facility] (PCP/Family) Additional Instructions: RETURN IF SYMPTOMS WORSEN OR FOR ANY CONCERNS Departure Forms: Customer Survey General Discharge Information
[2016-10-05 13:28] LABS: ABSOLUTE BASOPHIL COUNT 0.1 /CUMM (0.0-0.2); ABSOLUTE EOSINOPHIL COUNT 0.2 /CUMM (0.0-0.7); ABSOLUTE GRANULOCYTE CT 4.5 /CUMM (1.4-6.5); ABSOLUTE LYMPH COUNT 1.7 /CUMM (1.2-3.4); ABSOLUTE MONOCYTE COUNT 0.7 /CUMM (0.10-0.60); BASOPHIL % 1.4 % (0.0-2.0); EOSINOPHIL % 2.7 % (0-5); GRANULOCYTE % 62.2 % (42.2-75.2); HEMATOCRIT 38.7 % (37-47); MEAN CORPUSCULAR HGB 26.2 PG (27.0-31.0); MEAN CORPUSCULAR HGB CONC 32.1 G/DL (33.0-37.0); MEAN CORPUSCULAR VOLUME 81.8 FL (81.0-99.0); MEAN PLATELET VOLUME 8.9 FL (7.4-10.4); PLATELET COUNT 286 /CUMM (130-400); RBC DISTRIBUTION WIDTH 14.2 % (11.5-14.5); RED BLOOD CELL CT 4.73 /CUMM (4.20-5.40); WHITE BLOOD CELL COUNT 7.2 /CUMM (4.8-10.8)
[2016-10-05] MEDS ORDERED: LAMOTRIGINE200 M2 PO (14:53)
[2016-10-05] MEDS ORDERED: ATENOLOL25 M1 PO (14:55)
[2016-10-05] MEDS ORDERED: ONFI10 M1 PO (14:55)
[2016-10-05] MEDS ORDERED: LEXAPRO10 M1 PO (14:56)
[2016-10-05] MEDS ORDERED: VALIUM5 M2 PO (14:57)
[2016-10-05] MEDS ORDERED: PROAIR HFA8.5 GM INH (14:58)
--- NOTE | 2016-10-05 15:31 | RADIOLOGY REPORT ---
EXAMINATION: XR CHEST CLINICAL INFORMATION: Productive cough. Evaluate for pneumonia. COMPARISON: Multiple priors, most recent chest radiograph dated 02/26/2016. TECHNIQUE: AP and lateral views of the chest were obtained. FINDINGS: No focal airspace consolidation. No pleural effusion or pneumothorax. No cardiomediastinal silhouette enlargement. The visualized osseous structures are unremarkable. IMPRESSION: No airspace consolidation. No significant interval change since the prior examination.
[2016-10-05 15:56] VITALS: BP 142/64
== END 2016-10-05 15:57 ==
LOC: ERH 12:37
PROVIDERS: Emergency Medicine
DX: R56.9 Unspecified convulsions (principal)
CPT/HCPCS: 93005; 93010

== ENCOUNTER 2016-11-10 13:58 | Emergency (ER) | payer OTHER, MEDICARE ==
[~2016-11-10 13:58] MED LIST changes: +ATENOLOL25 M1 PO; +LAMOTRIGINE200 M2 PO; +LEXAPRO10 M1 PO; +PROAIR HFA8.5 GM INH; +VALIUM5 M2 PO
--- NOTE | 2016-11-10 14:22 | ED AMS/SEIZURE/WEAK/DIZZY ---
History of Present Illness General Chief Complaint: Seizure Stated Complaint: BIBA SEIZURE Source: patient, family Exam Limitations: no limitations Vital Signs & Intake/Output Vital Signs & Intake/Output Vital Signs Date Time Temp Pulse Resp B/P B/P Pulse O2 O2 Flow FiO2 Mean Ox Delivery Rate 11/10 1857 97.4 60 16 134/67 96 Room Air 11/10 1607 96.7 51 14 154/70 97 Room Air 11/10 1404 97.0 63 16 138/67 95 Room Air Allergies Coded Allergies: carbamazepine (UNKNOWN 02/11/16) divalproex sodium (From Depakote) (PT DOESN'T REMEMBER 02/11/16) levetiracetam (From Keppra) (RASH 02/11/16) phenobarbital (UNKNOWN 02/11/16) phenytoin (RASH 02/11/16) oxcarbazepine (From Trileptal) (Severe, SPOTS ON LUNGS 02/11/16) rufinamide (Mild, "DIDN'T WORK" 02/11/16) Uncoded Allergies: benzel (suicidal thoughts 01/24/16) Triage Note: PT BIBA FROM HOME S/P SEIZURE. STATES THAT SHE WAS ABOUT TO TAKE A SHOWER AND THEN HAD A SEIZURE. C/O HEAD, NECK, AND RIGHT SHOULDER PAIN. PT ARRIVES C-COLLARED BY EMS. Triage Nurses Notes Reviewed? yes HPI: This patient is a 46-year-old female with a past medical history including seizures who was brought into the emergency department today accompanied by her daughter and son for evaluation of seizure. The patient reported that she was getting ready to get into the shower and then she doesn't remember anything after that. The patient's daughter reported that about an hour prior to this happening, she was spaced timing with her mother reported that she seemed to be acting normally. The patient's daughter reported that typically when she is about to have, "an episode," her speech gets, "funny." The patient's daughter also reported that the patient's son found her face down on the floor in the bathroom when he arrived. The patient is complaining of 9 out of 10 head, facial, and neck pain. She is also complaining of pain in her right shoulder. The pain is nonradiating and constant. Worse with movement. The patient's daughter is also requesting an x-ray of the patient's right knee because she tripped over the dog and fell on it recently. The patient has been still walking on it, but complaining of pain. She recently had surgery on that same knee. The patient denied any visual changes, chest pain, difficulty breathing, abdominal pain, nausea, vomiting, or any other associated symptoms. (TITI CASTRO,MICHAEL) Reconcile Medications Albuterol Sulfate (Albuterol Sulfate Hfa) 0.09 MG/Actuation KATHERYN 2 PUFF INH PRN SHORTNESS OF BREATH (Reported) 90 MCG PER PUFF Albuterol Sulfate 2.5 MG/3 ML VIAL.NEB 1 Vial INH/JAKY Q6H PRN COPD (Reported) Atenolol 25 MG TAB 1 TAB PO DAILY HEART (Reported) Budesonide/Formoterol Fumara (Symbicort 160-4.5 Mcg Inhaler) 160 MCG/4.5 MCG PUF 2 PUF INH BID BREATHING PROBLEMS (Reported) Clobazam (ONFI) 10 MG TABLET 1 TAB PO DAILY SEIZURES (Reported) Clotrimazole/Betamethasone Dip (Clotrimazole-Betamethasone Crm) 15 GM CREAM..G. 1 SMITA TOP BID PSORIASIS (Reported) apply to affected area(s) Diazepam 5 MG TABLET 1 TAB PO DAILY SEIZURES (Reported) Escitalopram Oxalate (Lexapro) 10 MG TABLET 1 TAB PO DAILY UNK (Reported) Famotidine (Pepcid) 20 MG TABLET 1 TAB PO BID gastritis Hydroxyzine HCl 25 MG TABLET 1 TAB PO TID PRN ITCHING (Reported) Ibuprofen 800 MG TAB 1 TAB PO TID PRN PAIN Lacosamide (Vimpat) 150 MG TABLET 1 TAB PO DAILY SEIZURES (Reported) Lamotrigine 200 MG TABLET 1 TAB PO BID SEIZURES (Reported) Meloxicam (Mobic) 15 MG TABLET 1 TAB PO DAILY PAIN Ondansetron (Zofran Odt) 4 MG TAB.RAPDIS 1 ODT SL TID PRN nausea Tramadol HCl 50 MG TABLET 1 TAB PO BIDP PRN pain TRAZODONE HCL (Trazodone HCl) 100 MG TAB 2 TAB PO QPM SLEEP (Reported) Tylenol With Codeine (Tylenol With Codeine #3 Tablet) 1 EACH TABLET 1 TAB PO Q4-6 PRN PRN PAIN (SHERYL MCCOY,YOGI Leavitt) Past History Travel History Traveled to [place] past 21 day No Medical History Any Pertinent Medical History? 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 FATHER ( of AIDS.). child (seizure disorder). Relation not specified for: No pertinent family history Hx Contributory? No (MICHAEL WALLS PA-C) Review of Systems Review of Systems Constitutional: Reports: no symptoms. EENTM: Reports: no symptoms. Respiratory: Reports: no symptoms. Cardiovascular: Reports: no symptoms. GI: Reports: no symptoms. Genitourinary: Reports: no symptoms. Musculoskeletal: Reports: see HPI. Skin: Reports: no symptoms. Neurological/Psychological: Reports: see HPI. All Other Systems: Reviewed and Negative (MICHAEL WALLS PA-C) Physical Exam Physical Exam General Appearance: well developed/nourished, no apparent distress, alert, awake Comments: Well-developed well-nourished person in no acute distress HEENT: Normal EENT exam, head normocephalic/atraumatic with no bony deformities/ step-offs of the skull PERRLA bilaterally. EOMI bilaterally Nose is atraumatic. Neck: Supple, no lymphadenopathy. C-collar in place. Midline tenderness positive Back: Normal inspection Cardiovascular: Regular rate and rhythm with no murmurs, rubs, or gallops Respiratory: Chest nontender. No respiratory distress. Breath sounds clear to auscultation bilaterally with no wheezes, rales, rhonchi Right upper extremity: No effusions overlying erythema or ecchymosis to the joint spaces. Full range of motion of the elbow and wrist. Limited range of motion of the shoulder due to pain. Tenderness to palpation over the acromioclavicular joint. Radial and brachial pulses 2+ and strong Right knee: No effusions or overlying erythema or ecchymosis. Full range of motion. Tenderness to palpation over the patella Neuro: Alert oriented x3, cranial nerves II through XII grossly intact. No aphasia, no facial droop, no unilateral weakness Skin: No appreciable rash on exposed skin, skin is warm and dry. Psych: Mood and affect is normal Core Measures ACS in differential dx? Yes CVA/TIA Diagnosis: No Severe Sepsis Present: No Septic Shock Present: No (TITI CASTRO,MICHAEL) Progress Differential Diagnosis: arrythmia, alcohol intoxication, anemia, benign positional vertigo, CVA/stroke, dehydration, drug intoxication, encephalitis, electrolyte imbalance, GI bleed, hypoglycemia, hypoxia, intracranial Hem., intracranial mass/tumor, labrynthitis, meningitis, Meniere's disease, migraine RAPP, multiple sclerosis, pneumonia, postural hypotension, sepsis, seizure disorder, subarachnoid Hem., UTI/pyelo, vertebrobasilar insuff Plan of Care: Orders Procedure Date/time Status TROPONIN LEVEL 11/10 142 Complete PROLACTIN 11/10 142 Complete HUMAN BETA HCG SCREEN 11/10 142 Complete COMPREHENSIVE METABOLIC PANEL 11/10 142 Complete CBC WITHOUT DIFFERENTIAL 11/10 1422 Complete Laboratory Tests 11/10/16 1506: Anion Gap 13, Estimated GFR > 60, BUN/Creatinine Ratio 18.6, Glucose 97, Calcium 9.5, Total Bilirubin 0.4, AST 24, ALT 31, Alkaline Phosphatase 124, Troponin I < 0.01, Total Protein 7.1, Albumin 4.0, Globulin 3.1, Albumin/Globulin Ratio 1.3, Prolactin 10.7, Total Beta HCG NEGATIVE, CBC w Diff NO MAN DIFF REQ, RBC 4.89, MCV 79.8 L, MCH 26.4 L, RDW 14.4, MPV 8.0, Gran % 65.8, Lymphocytes % 26.1, Monocytes % 3.4, Eosinophils % 4.4, Basophils % 0.3, Absolute Granulocytes 6.3, Absolute Lymphocytes 2.5, Absolute Monocytes 0.3, Absolute Eosinophils 0.4, Absolute Basophils 0, PUBS MCHC 33.1 Diagnostic Imaging: Viewed by Me: Radiology Read, CT Scan. Discussed w/RAD: Radiology Read, CT Scan. Radiology Impression: PATIENT: BEAU BOONE PRESENT AGE: 46 PATIENT ACCOUNT NO: [id number] : 70 LOCATION: [facility] ORDERING PHYSICIAN: MICHAEL WALLS PA-C SERVICE DATE: 11/10/16 EXAM TYPE: CAT - CT CERV SPINE WO IV CONTRAST; CT HEAD WO IV CONTRAST; CT MAXILLOFACIAL W/O CON EXAMINATION: CT HEAD, FACE, AND CERVICAL SPINE. CLINICAL INFORMATION: Fall. Evaluate for intracranial hemorrhage or fracture. COMPARISON: CT scan of the head 04/29/2016. TECHNIQUE: Etl Database Developer images were obtained. CT acquisition of the head, face, and cervical spine was performed without intravenous administration of contrast. Data was reformatted into multiplanar images at the acquisition workstation. DLP: 1454.67 mGy-cm. FINDINGS: Head: There is no acute intracranial hemorrhage or abnormal extra-axial collection. No intracranial mass effect or midline shift. Lateral and third ventricles are normal. No hydrocephalus. Monreal-white matter differentiation is preserved and there is no evidence of acute territorial infarct. The calvarium and skull base are intact. Mastoid air cells and middle ear cavities are well aerated. Face: The nasal bones, zygomatic arches, and pterygoid processes are intact. The mandible is intact. The temporomandibular joints are symmetric. No evidence of acute facial fracture. Globes are symmetric. There is no retrobulbar mass or inflammation. The lamina papyracea and orbital floors are intact. Orbital apices are unremarkable. There are a few mucous retention cysts within the alveolar recesses of both maxillary sinuses. Mild to moderate paranasal sinus disease within the ethmoid air cells and sphenoid sinus. The nasal septum deviates to the left. Cervical spine: There is anatomic alignment and position of the vertebral bodies and posterior elements of the cervical spine in the sagittal dimension. Vertebral body heights are preserved. There is no acute fracture. No abnormal prevertebral soft tissue swelling. Grossly there is no evidence of canal compromise. Soft tissues of the neck including the thyroid gland are unremarkable. Visualized lung apices are clear. IMPRESSION: No acute intracranial hemorrhage. No acute cervical spine fracture or facial fracture. DICTATED BY: KETTY MCCOY,IFEANYI Kramer DATE/TIME DICTATED:11/10/161828 PAPER MACHINE OPERATOR:ANTONIO DATE/TIME TRANSCRIBED:11/10/161828 CONFIDENTIAL, DO NOT COPY WITHOUT APPROPRIATE AUTHORIZATION. <Electronically signed in Other Vendor System> SIGNED BY: IFEANYI HDEZ MD 11/10/16 184, PATIENT: BEAU BOONE PRESENT AGE: 46 PATIENT ACCOUNT NO: [id number] : 70 LOCATION: [facility] ORDERING PHYSICIAN: MICHAEL WALLS PA-C SERVICE DATE: 11/10/16 EXAM TYPE: RAD - XRY-SHOULDER COMPLETE-RIGHT EXAMINATION: XR SHOULDER, RIGHT CLINICAL INFORMATION: Right shoulder pain following fall. COMPARISON: Plain films of the right shoulder 08/19/2015. TECHNIQUE: AP external rotation, Grashey, scapular Y, and axillary views of the right shoulder. FINDINGS: The bones and soft tissues are normal. No fracture. Glenohumeral and acromioclavicular alignment is anatomic with normal joint space. No abnormal soft tissue calcifications. IMPRESSION: No acute fracture or dislocation of the right shoulder. DICTATED BY: THELMA NIELSEN MD DATE/TIME DICTATED:11/10/161944 PAPER MACHINE OPERATOR:ANTONIO DATE/TIME TRANSCRIBED:1944 CONFIDENTIAL, DO NOT COPY WITHOUT APPROPRIATE AUTHORIZATION. < Electronically signed in Other Vendor System> SIGNED BY: THELMA NIELSEN MD 11/10/161953, PATIENT: BEAU BOONE PRESENT AGE: 46 PATIENT ACCOUNT NO: [id number] : 70 LOCATION: [facility] ORDERING PHYSICIAN: MICHAEL WALLS PA-C SERVICE DATE: 11/10/16 EXAM TYPE: RAD - XRY-KNEE COMPLETE RIGHT EXAMINATION: XR KNEE, RIGHT CLINICAL INFORMATION: Right knee pain following fall. COMPARISON: None. TECHNIQUE: Four views of the right knee. FINDINGS: Multiple views of the right knee demonstrate mechanical hardware related to prior right knee arthroplasty. Specifically, hardware is identified along the articulating aspect of the patella as well as along the anterior aspect of the distal femur. A small suprapatellar right knee joint effusion is identified. There is no visible fracture or dislocation of the right knee joint. IMPRESSION: No visible fracture or dislocation of the right knee. Small suprapatellar right knee joint effusion. Mechanical hardware related to prior right knee arthroplasty, with mechanical hardware identified along the articulating aspect of the patella as well as along the anterior aspect of the distal femur. If clinical concern for fracture persists, consider correlation with noncontrast CT of the right knee. DICTATED BY: THELMA NIELSEN MD DATE/TIME DICTATED:11/10/161950 PAPER MACHINE OPERATOR:ANTONIO DATE/TIME TRANSCRIBED:1950 CONFIDENTIAL, DO NOT COPY WITHOUT APPROPRIATE AUTHORIZATION. < Electronically signed in Other Vendor System> SIGNED BY: THELMA NIELSEN MD 11/10/161999 Initial ED EKG: none (TITI CASTRO,MICHAEL) Departure Departure Disposition: HOME OR SELF CARE Condition: Stable Clinical Impression Primary Impression: Fall Qualifiers: Encounter type: initial encounter Qualified Code: W19.XXXA - Unspecified fall, initial encounter Referrals: [facility] (PCP/Family) Additional Instructions: Rest and be sure to stay hydrated. You may apply ice to the affected areas for 15-20 minutes, 3-4 times a day. Follow-up with your primary care physician. Return for any worsening symptoms or concerns. Departure Forms: Customer Survey General Discharge Information Prescriptions: Current Visit Scripts Tramadol HCl 1 TAB PO BIDP PRN pain #10 TAB (MICHAEL WALLS PA-C) PA/TECHNICAL TRAINING MANAGER Co-Sign Statement Statement: ED Attending supervision documentation- [] I saw and evaluated the patient. I have also reviewed all the pertinent lab results and diagnostic results. I agree with the findings and the plan of care as documented in the PA's/TECHNICAL TRAINING MANAGER's documentation. [x] I have reviewed the ED Record and agree with the PA's/TECHNICAL TRAINING MANAGER's documentation. [] Additions or exceptions (if any) to the PAs/TECHNICAL TRAINING MANAGER's note and plan are summarized below: [] (SHERYL MCCOY,YOGI Leavitt)
[2016-11-10 15:12] LABS: ABSOLUTE BASOPHIL COUNT 0 /CUMM (0.0-0.2); ABSOLUTE EOSINOPHIL COUNT 0.4 /CUMM (0.0-0.7); ABSOLUTE GRANULOCYTE CT 6.3 /CUMM (1.4-6.5); ABSOLUTE LYMPH COUNT 2.5 /CUMM (1.2-3.4); ABSOLUTE MONOCYTE COUNT 0.3 /CUMM (0.10-0.60); BASOPHIL % 0.3 % (0.0-2.0); EOSINOPHIL % 4.4 % (0-5); GRANULOCYTE % 65.8 % (42.2-75.2); MEAN CORPUSCULAR HGB 26.4 PG (27.0-31.0); MEAN CORPUSCULAR HGB CONC 33.1 G/DL (33.0-37.0); MEAN CORPUSCULAR VOLUME 79.8 FL (81.0-99.0); PLATELET COUNT 340 /CUMM (130-400); RBC DISTRIBUTION WIDTH 14.4 % (11.5-14.5); RED BLOOD CELL CT 4.89 /CUMM (4.20-5.40); WHITE BLOOD CELL COUNT 9.6 /CUMM (4.8-10.8)
--- NOTE | 2016-11-10 18:41 | CT SCAN REPORT ---
EXAMINATION: CT HEAD, FACE, AND CERVICAL SPINE. CLINICAL INFORMATION: Fall. Evaluate for intracranial hemorrhage or fracture. COMPARISON: CT scan of the head 04/29/2016. TECHNIQUE: Hr Receptionist images were obtained. CT acquisition of the head, face, and cervical spine was performed without intravenous administration of contrast. Data was reformatted into multiplanar images at the acquisition workstation. DLP: 1454.67 mGy-cm. FINDINGS: Head: There is no acute intracranial hemorrhage or abnormal extra-axial collection. No intracranial mass effect or midline shift. Lateral and third ventricles are normal. No hydrocephalus. Monreal-white matter differentiation is preserved and there is no evidence of acute territorial infarct. The calvarium and skull base are intact. Mastoid air cells and middle ear cavities are well aerated. Face: The nasal bones, zygomatic arches, and pterygoid processes are intact. The mandible is intact. The temporomandibular joints are symmetric. No evidence of acute facial fracture. Globes are symmetric. There is no retrobulbar mass or inflammation. The lamina papyracea and orbital floors are intact. Orbital apices are unremarkable. There are a few mucous retention cysts within the alveolar recesses of both maxillary sinuses. Mild to moderate paranasal sinus disease within the ethmoid air cells and sphenoid sinus. The nasal septum deviates to the left. Cervical spine: There is anatomic alignment and position of the vertebral bodies and posterior elements of the cervical spine in the sagittal dimension. Vertebral body heights are preserved. There is no acute fracture. No abnormal prevertebral soft tissue swelling. Grossly there is no evidence of canal compromise. Soft tissues of the neck including the thyroid gland are unremarkable. Visualized lung apices are clear. IMPRESSION: No acute intracranial hemorrhage. No acute cervical spine fracture or facial fracture.
[2016-11-10 18:57] VITALS: BP 134/67
--- NOTE | 2016-11-10 19:54 | RADIOLOGY REPORT ---
EXAMINATION: XR SHOULDER, RIGHT CLINICAL INFORMATION: Right shoulder pain following fall. COMPARISON: Plain films of the right shoulder 08/19/2015. TECHNIQUE: AP external rotation, Grashey, scapular Y, and axillary views of the right shoulder. FINDINGS: The bones and soft tissues are normal. No fracture. Glenohumeral and acromioclavicular alignment is anatomic with normal joint space. No abnormal soft tissue calcifications. IMPRESSION: No acute fracture or dislocation of the right shoulder.
--- NOTE | 2016-11-10 20:00 | RADIOLOGY REPORT ---
EXAMINATION: XR KNEE, RIGHT CLINICAL INFORMATION: Right knee pain following fall. COMPARISON: None. TECHNIQUE: Four views of the right knee. FINDINGS: Multiple views of the right knee demonstrate mechanical hardware related to prior right knee arthroplasty. Specifically, hardware is identified along the articulating aspect of the patella as well as along the anterior aspect of the distal femur. A small suprapatellar right knee joint effusion is identified. There is no visible fracture or dislocation of the right knee joint. IMPRESSION: No visible fracture or dislocation of the right knee. Small suprapatellar right knee joint effusion. Mechanical hardware related to prior right knee arthroplasty, with mechanical hardware identified along the articulating aspect of the patella as well as along the anterior aspect of the distal femur. If clinical concern for fracture persists, consider correlation with noncontrast CT of the right knee.
[2016-11-10] MEDS ORDERED: TRAMADOL HCL50 M1 PO (20:06)
[2017-01-01] MEDS ORDERED: ZOFRAN ODT4 M1 SL (22:58)
[2017-01-01] MEDS ORDERED: FIORICET 50-301 EACH PO (22:58)
== END 2016-11-10 20:13 ==
LOC: ERH 13:58
PROVIDERS: Physician Assistant
DX: R56.9 Unspecified convulsions (principal)
CPT/HCPCS: 73030-RT; 73562-RT

== ENCOUNTER 2017-07-29 11:07 | Emergency (ER) | payer OTHER, MEDICARE ==
[~2017-07-29] VITALS: Ht 165.1 cm; Wt 90.7 kg
[~2017-07-29 11:07] MED LIST changes: -ALBUTEROL0.09 MG/A1 INH; -ATENOLOL25 MG PO; +BACLOFEN10 M1 PO; +CYCLOBENZAPRINE5 M2 PO; +FIORICET 50-301 EACH PO; +TRAMADOL HCL50 M1 PO
[2017-07-29 11:18] VITALS: BP 108/77
[2017-07-29] MEDS ORDERED: ONFI10 M1 PO (11:39)
--- NOTE | 2017-07-29 11:43 | ED GENERAL ADULT ---
History of Present Illness General Chief Complaint: General Adult Stated Complaint: BIBA, OUT OF SEIZURE MEDS Source: patient, family, old records Exam Limitations: no limitations Vital Signs & Intake/Output Vital Signs & Intake/Output Vital Signs Date Time Temp Pulse Resp B/P B/P Pulse O2 O2 Flow FiO2 Mean Ox Delivery Rate 07/29 1118 98.2 67 18 108/77 98 Room Air Allergies Coded Allergies: carbamazepine (UNKNOWN 02/11/16) divalproex sodium (From Depakote) (PT DOESN'T REMEMBER 02/11/16) levetiracetam (From Keppra) (RASH 02/11/16) phenobarbital (UNKNOWN 02/11/16) phenytoin (RASH 02/11/16) oxcarbazepine (From Trileptal) (Severe, SPOTS ON LUNGS 02/11/16) rufinamide (Mild, "DIDN'T WORK" 02/11/16) Uncoded Allergies: benzel (suicidal thoughts 01/24/16) Reconcile Medications Albuterol Sulfate (Proair Hfa) 90 MCG HFA.AER.AD 2 PUF INH Q4-6 PRN PRN SHORTNESS OF BREATH (Reported) Albuterol Sulfate 2.5 MG/3 ML VIAL.NEB 1 Vial INH/JAKY Q6H PRN COPD (Reported) Atenolol 25 MG TABLET 1 TAB PO DAILY HEART (Reported) Budesonide/Formoterol Fumarate (Symbicort 160-4.5 Mcg Inhaler) 160 MCG-4.5 MCG/ ACTUATION HFA.AER.AD 2 PUF INH BID BREATHING PROBLEMS (Reported) Clobazam (ONFI) 10 MG TABLET 1 TAB PO DAILY SEIZURES (Reported) Clobazam (ONFI) 10 MG TABLET 1 TAB PO ONCE DAILY SEIZURE Cyclobenzaprine HCl 5 MG TABLET 1 TAB PO TIDPRN PRN PAIN Diazepam 5 MG TABLET 1 TAB PO DAILY SEIZURES (Reported) Escitalopram Oxalate (Lexapro) 10 MG TABLET 1 TAB PO DAILY UNK (Reported) Famotidine (Pepcid) 20 MG TABLET 1 TAB PO BID gastritis Ibuprofen 600 MG TABLET 1 TAB PO Q6PRN PRN pain with food Lacosamide (Vimpat) 150 MG TABLET 1 TAB PO DAILY SEIZURES (Reported) Lamotrigine 200 MG TABLET 1 TAB PO BID SEIZURES (Reported) Trazodone HCl 100 MG TABLET 2 TAB PO QPM SLEEP (Reported) Tylenol With Codeine (Tylenol With Codeine #3 Tablet) 300 MG-30 MG TABLET 1 TAB PO BIDP PRN PAIN Triage Note: 46 YO FEMALE TO TRIAGE STATING SHE IS OUT OF HER SEIZURE MEDICAITON AND "FEELS AN AURA" COMING ON. STATES HASNT HAD HER MEDS IN 3 DAYS. STATES SHE CALLED HER DR BUT HE WASNT ABLE TO PERSCRIBE THEM D/T HER JUST GETTING A NEW DR. STATES HE LAST SEIZURE WAS "A LONG TIME AGO" PT A&O X3 AT THIS TIME. Triage Nurses Notes Reviewed? yes Onset: Gradual Duration: day(s): (3), constant, continues in ED, getting worse Timing: recent history Injury Environment: home Severity: moderate, severe No Modifying Factors: none LMP (ages 10-50): unknown : No Patient currently breastfeeds: No HPI: 46 year old female past medical history of seizure disorder presents for a medication refill. Patient states that she ran out of her long-acting benzodiazepine 3 days ago which she takes for seizure prophylaxis. She was unable to get an appointment or refill from her doctor. She currently also takes Lamictal and Valium. She states that she took 5 mg of Valium this morning and her dose of Lamictal. She states that she is getting a "aura". She states she usually gets this before she is going to have a seizure. She's been feeling this for 3 days. She doesn't remember the last time she had a seizure but states that it was "a long time ago". She was seen here multiple times for similar symptoms. She denies any drug or alcohol abuse. She has an appointment with her neurologist tomorrow. She denies any chest pain shortness of breath fevers or rashes headaches or any other symptoms. She was given a refill of 10 pills for onfi (her long-acting benzodiazepine). Advised her to follow-up with her neurologist tomorrow as directed. Also encouraged patient to ensure that she has enough of her medications before running out. Discussed return precautions in detail patient is nontoxic-appearing and agrees with the plan. Past History Travel History Traveled to [place] past 21 day No Medical History Any Pertinent Medical History? 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 FATHER ( of AIDS.). child (seizure disorder). Relation not specified for: No pertinent family history Hx Contributory? No Review of Systems Review of Systems Constitutional: Reports: no symptoms. EENTM: Reports: see HPI (aura), visual changes (aura). Respiratory: Reports: no symptoms. Cardiovascular: Reports: no symptoms. GI: Reports: no symptoms. Genitourinary: Reports: no symptoms. Musculoskeletal: Reports: no symptoms. Skin: Reports: no symptoms. Neurological/Psychological: Reports: no symptoms. Hematologic/Endocrine: Reports: no symptoms. Immunologic/Allergic: Reports: no symptoms. All Other Systems: Reviewed and Negative Physical Exam Physical Exam General Appearance: well developed/nourished, no apparent distress, alert, awake , anxious Head: atraumatic, normal appearance Eyes: Bilateral: normal appearance, PERRL, EOMI. Ears, Nose, Throat: hearing grossly normal Neck: normal inspection, supple, full range of motion Respiratory: normal breath sounds, chest non-tender, no respiratory distress, lungs clear Cardiovascular: regular rate/rhythm, normal peripheral pulses Peripheral Pulses: 2+ radial (R), 2+ radial (L) Gastrointestinal: normal bowel sounds, soft, non-tender, no organomegaly Back: normal inspection, normal range of motion Extremities: no edema, right arm is in a sling. Patient moving remaining extremities equally Neurologic/Psych: no motor/sensory deficits, awake, alert, oriented x 3 Skin: intact, normal color, warm/dry Core Measures ACS in differential dx? No CVA/TIA Diagnosis: No Sepsis Present: No Sepsis Focused Exam Completed? No Progress Differential Diagnoses I considered the following diagnoses in my evaluation of the patient: [Seizure disorder, medication refill, anxiety, drug-seeking, electrolyte abnormality, intracranial mass] Plan of Care: Current Medications Sig/Corrine Start time Last Medication Dose Stop Time Status Admin Lorazepam 2 MG ONCE ONE 07/29 1145 UNVr (Ativan) 07/29 1146 Patient seen and evaluated. She reports feeling as though she is going to have a seizure soon. She's been feeling this way since she ran out of her medication 3 days ago. She currently is taking Lamictal and took 5 mg of Valium today. She is nontoxic-appearing. Patient was medicated with 2 mg of oral Ativan and monitored. About 20 minutes after taking the Ativan she reports feeling completely fine the or is gone. Initial ED EKG: none Departure Departure Disposition: HOME OR SELF CARE Condition: Stable Clinical Impression Primary Impression: Medication refill Referrals: Amrita Gar (PCP/Family) Additional Instructions: Continue to take all medications as directed. Follow-up with your neurologist tomorrow as directed. Monitor symptoms return with any concerns. Departure Forms: Customer Survey General Discharge Information Prescriptions: Current Visit Scripts Clobazam (ONFI) 1 TAB PO ONCE DAILY #10 TAB Critical Care Note Critical Care Note Critical Care Time: non-applicable
== END 2017-07-29 12:32 ==
LOC: ERH 11:07
DX: Z76.0 Encounter for issue of repeat prescription (principal)
CPT/HCPCS: 99281

== ENCOUNTER 2017-10-29 00:55 | Emergency (ER) | payer OTHER, MEDICARE ==
[~2017-10-29] VITALS: Ht 165.1 cm; Wt 99.8 kg
--- NOTE | 2017-10-29 01:10 | ED CARDIAC/CP/PALPITATIONS ---
History of Present Illness General Chief Complaint: Chest Pain Stated Complaint: BIBA, CHEST PAIN Source: patient, old records Exam Limitations: no limitations Vital Signs & Intake/Output Vital Signs & Intake/Output Vital Signs Date Time Temp Pulse Resp B/P B/P Pulse O2 O2 Flow FiO2 Mean Ox Delivery Rate 10/29 0313 97.8 66 18 128/65 95 Room Air 10/29 0105 98.7 65 20 149/67 96 Room Air Allergies Coded Allergies: carbamazepine (UNKNOWN 02/11/16) divalproex sodium (From Depakote) (PT DOESN'T REMEMBER 02/11/16) levetiracetam (From Keppra) (RASH 02/11/16) phenobarbital (UNKNOWN 02/11/16) phenytoin (RASH 02/11/16) oxcarbazepine (From Trileptal) (Severe, SPOTS ON LUNGS 02/11/16) rufinamide (Mild, "DIDN'T WORK" 02/11/16) Uncoded Allergies: benzel (suicidal thoughts 01/24/16) Reconcile Medications Albuterol Sulfate (Proair Hfa) 90 MCG HFA.AER.AD 2 PUF INH Q4-6 PRN PRN SHORTNESS OF BREATH (Reported) Albuterol Sulfate 2.5 MG/3 ML VIAL.NEB 1 Vial INH/JAKY Q6H PRN COPD (Reported) Atenolol 25 MG TABLET 1 TAB PO DAILY HEART (Reported) Budesonide/Formoterol Fumarate (Symbicort 160-4.5 Mcg Inhaler) 160 MCG-4.5 MCG/ ACTUATION HFA.AER.AD 2 PUF INH BID BREATHING PROBLEMS (Reported) Clobazam (ONFI) 10 MG TABLET 1 TAB PO DAILY SEIZURES (Reported) Clobazam (ONFI) 10 MG TABLET 1 TAB PO ONCE DAILY SEIZURE Cyclobenzaprine HCl 5 MG TABLET 1 TAB PO TIDPRN PRN PAIN Diazepam 5 MG TABLET 1 TAB PO DAILY SEIZURES (Reported) Escitalopram Oxalate (Lexapro) 10 MG TABLET 1 TAB PO DAILY UNK (Reported) Famotidine (Pepcid) 20 MG TABLET 1 TAB PO BID gastritis Ibuprofen 600 MG TABLET 1 TAB PO Q6PRN PRN pain with food Lacosamide (Vimpat) 150 MG TABLET 1 TAB PO DAILY SEIZURES (Reported) Lamotrigine 200 MG TABLET 1 TAB PO BID SEIZURES (Reported) Trazodone HCl 100 MG TABLET 2 TAB PO QPM SLEEP (Reported) Tylenol With Codeine (Tylenol With Codeine #3 Tablet) 300 MG-30 MG TABLET 1 TAB PO BIDP PRN PAIN Triage Note: PT BIBA FROM HOME WITH C/O INTERMITTENT CP X3 DAYS RAIDATING TO L ARM WITH L ARM AND FINGER TINGLING. EMS MEDICATED PT WITH 324MG ASPIRIN EN ROUTE. BS 109 FOR EMS. PT REPORTS CP AT THIS TIME 02/19, DENIES NAUSEA OR SOB Triage Nurses Notes Reviewed? yes HPI: Patient present with an intermittent pinching sensation on the left side of her chest that radiates to her left arm. The pain lasts a few minutes and then goes away. The pain has been worsening over the past few days. There is no shortness of breath. There are no aggravating or mitigating factors. When she has the pain she rates it as a 6 out of 10. Currently it is 0 out of 10. 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 Past History Travel History Traveled to [place] past 21 day No Medical History Any Pertinent Medical History? 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 FATHER ( of AIDS.). child (seizure disorder). Relation not specified for: No pertinent family history Hx Contributory? No Review of Systems Review of Systems Constitutional: Reports: no symptoms. EENTM: Reports: no symptoms. Respiratory: Reports: no symptoms. Cardiovascular: Reports: see HPI, chest pain. GI: Reports: no symptoms. Genitourinary: Reports: no symptoms. Musculoskeletal: Reports: no symptoms. Skin: Reports: no symptoms. Neurological/Psychological: Reports: no symptoms. Hematologic/Endocrine: Reports: no symptoms. Immunologic/Allergic: Reports: no symptoms. All Other Systems: Reviewed and Negative Physical Exam Physical Exam General Appearance: well developed/nourished, alert, awake, mild distress Head: atraumatic, normal appearance Eyes: Bilateral: PERRL, EOMI. Ears, Nose, Throat: normal pharynx, normal ENT inspection, hearing grossly normal Neck: normal inspection, supple, full range of motion Respiratory: normal breath sounds, chest non-tender, no respiratory distress, lungs clear Cardiovascular: regular rate/rhythm, normal peripheral pulses Gastrointestinal: normal bowel sounds, soft, non-tender, no organomegaly Back: normal inspection, normal range of motion Extremities: normal inspection, normal capillary refill, normal range of motion, no edema Neurologic/Psych: no motor/sensory deficits, awake, alert, oriented x 3, normal mood/affect Skin: intact, normal color, warm/dry Lymphatic: no anterior cervical fabian Core Measures ACS in differential dx? No CVA/TIA Diagnosis No Sepsis Present: No Sepsis Focused Exam Completed? 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2, MPV 7.8, Gran % 62.2, Lymphocytes % 25.2, Monocytes % 7.9, Eosinophils % 4.2, Basophils % 0.5, Absolute Granulocytes 5.6, Absolute Lymphocytes 2.3, Absolute Monocytes 0.7 H, Absolute Eosinophils 0.4, Absolute Basophils 0 Diagnostic Imaging: Viewed by Me: Radiology Read. Discussed w/RAD: Radiology Read. CXR Impression: PATIENT: BEAU BOONE PRESENT AGE: 47 PATIENT ACCOUNT NO: [id number] : 70 LOCATION: [facility] ORDERING PHYSICIAN: Jagjit Thompson MD SERVICE DATE: 10/29/17 EXAM TYPE: RAD - XRY-PORTABLE CHEST XRAY EXAMINATION: XR PORTABLE CHEST CLINICAL INFORMATION: Chest pain COMPARISON: 05/08/2017 TECHNIQUE: Portable frontal view of the chest was obtained. FINDINGS: Cardiac leads overlie the chest. The lungs are well expanded. There is no focal consolidation, edema, or effusion. No pneumothorax. The cardiomediastinal silhouette is within normal limits. No acute osseous abnormality. 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 <Electronically signed in Other Vendor System> SIGNED BY: Bear MCCOY,Cedric 10/29/17305 Initial ED EKG: NSR, no ST T wave changes Prior EKG: unchanged Repeat EKG: unchanged Rhythm Strip: normal sinus rhythm Departure Departure Disposition: HOME OR SELF CARE Condition: Stable Clinical Impression Primary Impression: Chest pain, unspecified Qualifiers: Chest pain type: other chest pain Qualified Code: R07.89 - Other chest pain Referrals: Amrita Gar (PCP/Family) Additional Instructions: FOLLOW UP WITH YOUR WOOD HACKER RETURN IF SYMPTOMS WORSEN OR FOR ANY CONCERNS Departure Forms: Customer Survey General Discharge Information Critical Care Note Critical Care Note Critical Care Time: non-applicable
[2017-10-29 01:44] LABS: ABSOLUTE BASOPHIL COUNT 0 /CUMM (0.0-0.2); ABSOLUTE EOSINOPHIL COUNT 0.4 /CUMM (0.0-0.7); ABSOLUTE GRANULOCYTE CT 5.6 /CUMM (1.4-6.5); ABSOLUTE LYMPH COUNT 2.3 /CUMM (1.2-3.4); ABSOLUTE MONOCYTE COUNT 0.7 /CUMM (0.10-0.60); BASOPHIL % 0.5 % (0.0-2.0); EOSINOPHIL % 4.2 % (0-5); GRANULOCYTE % 62.2 % (42.2-75.2); HEMATOCRIT 38.1 % (37-47); MEAN CORPUSCULAR HGB 26.9 PG (27.0-31.0); MEAN CORPUSCULAR HGB CONC 33.2 G/DL (33.0-37.0); MEAN CORPUSCULAR VOLUME 80.9 FL (81.0-99.0); MEAN PLATELET VOLUME 7.8 FL (7.4-10.4); PLATELET COUNT 397 /CUMM (130-400); RBC DISTRIBUTION WIDTH 14.2 % (11.5-14.5); RED BLOOD CELL CT 4.71 /CUMM (4.20-5.40)
--- NOTE | 2017-10-29 03:06 | RADIOLOGY REPORT ---
EXAMINATION: XR PORTABLE CHEST CLINICAL INFORMATION: Chest pain COMPARISON: 05/08/2017 TECHNIQUE: Portable frontal view of the chest was obtained. FINDINGS: Cardiac leads overlie the chest. The lungs are well expanded. There is no focal consolidation, edema, or effusion. No pneumothorax. The cardiomediastinal silhouette is within normal limits. No acute osseous abnormality. IMPRESSION: No acute pulmonary findings
[2017-10-29 05:46] VITALS: BP 126/80
== END 2017-10-29 05:47 ==
LOC: ERH 00:55
PROVIDERS: Emergency Medicine
DX: R07.9 Chest pain, unspecified (principal)
CPT/HCPCS: 71045; 93005; 93010; 96361; 96374

== ENCOUNTER 2018-03-30 22:39 | Emergency (ER) | payer OTHER, MEDICARE ==
[2018-03-30 23:35] LABS: ABSOLUTE BASOPHIL COUNT 0 /CUMM (0.0-0.2); ABSOLUTE EOSINOPHIL COUNT 0.4 /CUMM (0.0-0.7); ABSOLUTE GRANULOCYTE CT 6.1 /CUMM (1.4-6.5); ABSOLUTE LYMPH COUNT 3.8 /CUMM (1.2-3.4); ABSOLUTE MONOCYTE COUNT 0.8 /CUMM (0.10-0.60); BASOPHIL % 0.3 % (0.0-2.0); EOSINOPHIL % 3.8 % (0-5); GRANULOCYTE % 54.8 % (42.2-75.2); HEMATOCRIT 39.5 % (37-47); MEAN CORPUSCULAR HGB 26.5 PG (27.0-31.0); MEAN CORPUSCULAR HGB CONC 32.7 G/DL (33.0-37.0); MEAN CORPUSCULAR VOLUME 81.2 FL (81.0-99.0); PLATELET COUNT 357 /CUMM (130-400); RBC DISTRIBUTION WIDTH 15.1 % (11.5-14.5); RED BLOOD CELL CT 4.86 /CUMM (4.20-5.40); WHITE BLOOD CELL COUNT 11.1 /CUMM (4.8-10.8)
--- NOTE | 2018-03-30 23:46 | RADIOLOGY REPORT ---
EXAMINATION: XR PORTABLE CHEST CLINICAL INFORMATION: Chest pain COMPARISON: Chest x-ray 10/29/2017 TECHNIQUE: Portable frontal view of the chest was obtained. 11:16 PM FINDINGS: No significant abnormality is noted involving the heart, lungs, mediastinum, bony thorax or soft tissues. IMPRESSION: Unremarkable examination.
--- NOTE | 2018-03-31 | ED CARDIAC/CP/PALPITATIONS ---
History of Present Illness General Chief Complaint: Chest Pain Stated Complaint: BIBA CP Source: patient Exam Limitations: no limitations Allergies Coded Allergies: carbamazepine (UNKNOWN 02/11/16) divalproex sodium (From Depakote) (PT DOESN'T REMEMBER 02/11/16) levetiracetam (From Keppra) (RASH 02/11/16) phenobarbital (UNKNOWN 02/11/16) phenytoin (RASH 02/11/16) oxcarbazepine (From Trileptal) (Severe, SPOTS ON LUNGS 02/11/16) rufinamide (Mild, "DIDN'T WORK" 02/11/16) Uncoded Allergies: benzel (suicidal thoughts 01/24/16) Reconcile Medications Albuterol Sulfate (Proair Hfa) 90 MCG HFA.AER.AD 2 PUF INH Q4-6 PRN PRN SHORTNESS OF BREATH (Reported) Albuterol Sulfate 2.5 MG/3 ML VIAL.NEB 1 Vial INH/JAKY Q6H PRN COPD (Reported) Atenolol 25 MG TABLET 1 TAB PO DAILY HEART (Reported) Budesonide/Formoterol Fumarate (Symbicort 160-4.5 Mcg Inhaler) 160 MCG-4.5 MCG/ ACTUATION HFA.AER.AD 2 PUF INH BID BREATHING PROBLEMS (Reported) Clobazam (ONFI) 10 MG TABLET 1 TAB PO DAILY SEIZURES (Reported) Clobazam (ONFI) 10 MG TABLET 1 TAB PO ONCE DAILY SEIZURE Cyclobenzaprine HCl 5 MG TABLET 1 TAB PO TIDPRN PRN PAIN Diazepam 5 MG TABLET 1 TAB PO DAILY SEIZURES (Reported) Escitalopram Oxalate (Lexapro) 10 MG TABLET 1 TAB PO DAILY UNK (Reported) Famotidine (Pepcid) 20 MG TABLET 1 TAB PO BID gastritis Ibuprofen 600 MG TABLET 1 TAB PO Q6PRN PRN pain with food Lacosamide (Vimpat) 150 MG TABLET 1 TAB PO DAILY SEIZURES (Reported) Lamotrigine 200 MG TABLET 1 TAB PO BID SEIZURES (Reported) Trazodone HCl 100 MG TABLET 2 TAB PO QPM SLEEP (Reported) Tylenol With Codeine (Tylenol With Codeine #3 Tablet) 300 MG-30 MG TABLET 1 TAB PO BIDP PRN PAIN Triage Note: PT BIBA FROM HOME FOR PALPATATIONS STARTING AT 1600 WHILE SITTING. PT DENIES CHEST PAIN. PT STATES HER LEFT AHDN AND FOOT WAS TINGLY. PT IS SINUS ON THE MONITOR Triage Nurses Notes Reviewed? yes Onset: Abrupt Duration: day(s): (1), intermittent Timing: recent history HPI: 47-year-old female comes into the emergency room by ambulance for chest pain. Patient reports that she was feeling some clamminess and diaphoresis yesterday. This afternoon she was experiencing a pinching sensation in her chest. She reports it went away after aspirin. Tonight she had return of the pain or severe in nature. She has some associated shortness of breath and nausea. Denies any fever chills coughing vomiting. Nothing seems to make the symptoms better. She comes into the emergency room seeking further evaluation. (Robert Castro) Vital Signs & Intake/Output Vital Signs & Intake/Output Vital Signs Date Time Temp Pulse Resp B/P B/P Pulse O2 O2 Flow FiO2 Mean Ox Delivery Rate 03/31 0347 98.0 74 18 127/82 100 Room Air 03/31 0126 98.0 72 20 130/84 99 Room Air 03/30 2245 98.2 78 16 135/80 99 Room Air Room Air ED Intake and Output 03/31 0000 03/30 1200 Intake Total 0 Output Total Balance 0 Intake, Oral 0 (Deborah MCCOY,Car Leavitt) Past History Travel History Traveled to [place] past 21 day No Medical History Any Pertinent Medical History? see below for history Neurological: seizure, MIGRAINES EPILEPTIC AND NONEPILEPTIC SEIZURE PSEUDOSEIZURES EENT: NONE Cardiovascular: NONE Respiratory: asthma Gastrointestinal: NONE Hepatic: NONE Renal: nephrolithiasis Musculoskeletal: NONE Psychiatric: anxiety, bipolar disease, depression Endocrine: NONE Blood Disorders: NONE Cancer(s): NONE GLOBAL MARKETING SPECIALIST/Reproductive: NONE History of MRSA: No History of VRE: No History of CDIFF: No Surgical History Surgical History: LITHOTRYPSY Psychosocial History Who do you live with Family Services at Home Home Health Aide What is your primary language Greek Tobacco Use: Current Daily Use Daily Tobacco Use Amount/Type: => 5 Cigarettes daily Family History Family History, If Any: MOTHER (Hypertension, Thyroid Dysfunction, Depression). FATHER ( of AIDS.). child (seizure disorder). Relation not specified for: No pertinent family history Hx Contributory? No (Robert Castro) Review of Systems Review of Systems Constitutional: Reports: see HPI. EENTM: Reports: no symptoms. Respiratory: Reports: see HPI. Cardiovascular: Reports: see HPI. GI: Reports: no symptoms. Genitourinary: Reports: no symptoms. Musculoskeletal: Reports: no symptoms. Skin: Reports: no symptoms. Neurological/Psychological: Reports: no symptoms. Hematologic/Endocrine: Reports: no symptoms. Immunologic/Allergic: Reports: no symptoms. All Other Systems: Reviewed and Negative (Robert Castro) Physical Exam Physical Exam General Appearance: well developed/nourished, no apparent distress, alert, awake Head: atraumatic, normal appearance Eyes: Bilateral: normal appearance. Ears, Nose, Throat: normal ENT inspection, hearing grossly normal Neck: normal inspection Respiratory: normal breath sounds, no respiratory distress Cardiovascular: regular rate/rhythm Gastrointestinal: soft Back: normal inspection Extremities: normal inspection Neurologic/Psych: awake, alert, oriented x 3, normal gait, normal mood/affect Skin: intact, normal color (Robert Castro) Core Measures ACS in differential dx? No CVA/TIA Diagnosis No Sepsis Present: No Sepsis Focused Exam Completed? No (Deborah MCCOY,aCr Leavitt) Progress Differential Diagnosis: AMI, myocarditis, pancreatitis, pericarditis, pneumonia, pneumothorax, pulmonary embolism, unstable angina Diagnostic Imaging: Viewed by Me: Radiology Read. Discussed w/RAD: Radiology Read. Radiology Impression: PATIENT: BEAU BOONE PRESENT AGE: 47 PATIENT ACCOUNT NO: [id number] : 70 LOCATION: [facility] ORDERING PHYSICIAN: Robert HOLDEN SERVICE DATE: 03/30/18 EXAM TYPE : RAD - XRY-PORTABLE CHEST XRAY EXAMINATION: XR PORTABLE CHEST CLINICAL INFORMATION: Chest pain COMPARISON: Chest x-ray 10/29/2017 TECHNIQUE: Portable frontal view of the chest was obtained. 11:16 PM FINDINGS: No significant abnormality is noted involving the heart, lungs, mediastinum, bony thorax or soft tissues. IMPRESSION: Unremarkable examination. DICTATED BY: Maxx Mason MD DATE/TIME DICTATED:03/30/182336 SENIOR INSTRUMENTATION ENGINEER:ANTONIO DATE/TIME TRANSCRIBED:03/30/182336 CONFIDENTIAL, DO NOT COPY WITHOUT APPROPRIATE AUTHORIZATION. <Electronically signed in Other Vendor System> SIGNED BY: Maxx Mason MD 03/30/18 2346 Initial ED EKG: normal sinus rhythm, rate (63) Hand-Off Endorsed To: Deborah MCCOY,Car Leavitt Pending: CT, EKG (REPEAT), labs (REPEAT TROPONIN) (Robert Castro) Plan of Care: Orders Procedure Date/time Status TROPONIN LEVEL 03/31 315 Complete EKG 03/31 315 Active Telemetry/Greenskeeper Laborer 03/30 2245 Active TROPONIN LEVEL 03/30 2245 Complete D-DIMER 03/30 2245 Complete COMPREHENSIVE METABOLIC PANEL 03/30 2245 Complete CBC WITHOUT DIFFERENTIAL 03/30 2245 Complete EKG 03/30 2240 Active Laboratory Tests 03/31/18314: Troponin I < 0.01 03/30/183: Anion Gap 8, Estimated GFR > 60, BUN/Creatinine Ratio 25.7 H, Glucose 101 H, Calcium 9.4, Total Bilirubin 0.1 L, AST 24, ALT 27, Alkaline Phosphatase 127 H , Troponin I < 0.01, Total Protein 6.8, Albumin 4.1, Globulin 2.7, Albumin/ Globulin Ratio 1.5, D-Dimer High Sensitivty 444 H, CBC w Diff MAN DIFF ORDERED, RBC 4.86, MCV 81.2, MCH 26.5 L, MCHC 32.7 L, RDW 15.1 H, MPV 8.0, Gran % 54.8 , Lymphocytes % 34.3, Monocytes % 6.8, Eosinophils % 3.8, Basophils % 0.3, Absolute Granulocytes 6.1, Segmented Neutrophils 60, Absolute Lymphocytes 3.8 H , Lymphocytes 31, Monocytes 4, Absolute Monocytes 0.8 H, Eosinophils 5, Absolute Eosinophils 0.4, Absolute Basophils 0, Platelet Estimate ADEQUATE, Normochromic RBCs VERIFIED, Poikilocytosis 1+, Ovalocytes 1+, Stomatocytes FEW, Fld Total RBCs Counted 100 (Deborah MCCOY,Car Leavitt) Departure Departure Disposition: HOME OR SELF CARE Condition: Stable Clinical Impression Primary Impression: Chest pain Referrals: Amrita Gar (PCP/Family) Additional Instructions: Follow-up with your student. Return if any other concerns worsening symptoms. Please go over all results of today's visit with your primary care doctor. Contact your primary care doctor to let them know you were here in the emergency room. There may be nonspecific findings which may not be related to your visit today here in the emergency room but may require further evaluation and chronic monitoring by your primary care doctor. If you had a laceration today the chance of foreign body always remains. You should follow-up with your primary care doctor for recheck in 3-5 days for a wound check. If you had an x-ray done there is a chance that a fracture could have been missed on initial read and you should follow-up with your primary care doctor for repeat x-rays if symptoms persist. If your blood pressure was elevated here in the emergency room please have rechecked by [facility] primary care doctor within the next 48. If you were prescribed a narcotic here in the emergency room or any type of controlled substances you're not allowed to drive while taking this medication or operate any type of heavy machinery. Narcotics can make you feel lightheaded dizziness nausea and can cause constipation. You may need to waste picker a stool softener. Thank you for choosing [facility] emergency room. Please return to the emergency room immediately if you have any other concerns worsening of symptoms. Departure Forms: Customer Survey General Discharge Information (Robert Castro) Departure Comments 03/31/18, 3:40AM... pt with trop/ekg benign x 2, feeling comfortable in the ED... safe for discharge, close follow up advised. PA/PHLEBOTOMY LAB ASSISTANT Co-Sign Statement Statement: ED Attending supervision documentation- [x] I saw and evaluated the patient. I have also reviewed all the pertinent lab results and diagnostic results. I agree with the findings and the plan of care as documented in the PA's/PHLEBOTOMY LAB ASSISTANT's documentation. [] I have reviewed the ED Record and agree with the PA's/PHLEBOTOMY LAB ASSISTANT's documentation. [] Additions or exceptions (if any) to the PAs/PHLEBOTOMY LAB ASSISTANT's note and plan are summarized below: [] (Deborah MCCOY,Car Leavitt) Critical Care Note Critical Care Note Critical Care Time: non-applicable (Deborah MCCOY,Car Leavitt)
[2018-03-31 03:47] VITALS: BP 127/82
--- NOTE | 2018-03-31 04:38 | CT SCAN REPORT ---
EXAMINATION: CT ANGIOGRAM OF THE CHEST WITH AND WITHOUT CONTRAST (CT PULMONARY ANGIOGRAM FOR PE) CLINICAL INFORMATION: Reason for Study:
Presumptive Dx: CP
Signs Symptoms: ROOM 3
COMPARISON: 09/23/2015 TECHNIQUE: Prior to contrast administration, noncontrast localization images were obtained. Subsequently, multidetector volumetric imaging was performed from the thoracic inlet to below the diaphragms following the administration of 75 mL Optiray 320 intravenous contrast. No contrast reaction reported. Sagittal, coronal, and MIP oblique sagittal reformatted images were obtained on the CT workstation, uploaded to PACS, and reviewed. Total exam dose-length product 539.5 mGy-cm. FINDINGS: QUALITY OF STUDY/CONTRAST BOLUS: Satisfactory PULMONARY ARTERIES: No central or segmental pulmonary emboli. THORACIC AORTA: No aneurysm or dissection. LUNG: No regions of consolidation bilaterally. There is mild curvilinear opacity in the right upper lobe laterally which has an appearance favoring atelectasis or scarring. PLEURA: No pleural effusion or pneumothorax. MEDIASTINUM: The visualized thyroid gland is unremarkable. There are subcentimeter mediastinal lymph nodes within the range of normal variation. Cardiac size is within normal limits; no pericardial effusion. No evidence of septal bowing or right heart strain. CHEST WALL/AXILLA: No axillary or internal mammary lymphadenopathy. OSSEOUS STRUCTURES: Mild endplate osteophytes are noted in the thoracic spine. UPPER ABDOMEN: Unremarkable. No reflux of contrast into the hepatic veins to suggest elevated right heart pressures. IMPRESSION: No evidence of pulmonary embolus or other acute intrathoracic findings. VTE: negative
== END 2018-03-31 03:47 ==
LOC: ERH 22:39
PROVIDERS: Physician Assistant Medical
DX: R07.9 Chest pain, unspecified (principal); R06.02 Shortness of breath; R11.0 Nausea; F17.210 Nicotine dependence, cigarettes, uncomplicated; J45.909 Unspecified asthma, uncomplicated
CPT/HCPCS: 71045; 93005; 93010